=== PATIENT | female | born 1950 | race Caucasian/White ===

== ENCOUNTER 2023-11-26 12:14 | Observation (INO) | payer OTHER ==
[2023-11-26 12:29] VITALS: BMI 27.6
[2023-11-26] MEDS ORDERED: MECLIZINE HCL 25 MG TABLET (FP) ONE (13:52)
[2023-11-26] MEDS ORDERED: METOCLOPRAMIDE HCL INJECTION 10 MG/2 ML VIAL ONE (13:52)
[2023-11-26] MEDS: METOCLOPRAMIDE HCL INJECTION 10 MG/2 ML VIAL IVPB ONE (13:58)
[2023-11-26] MEDS: SODIUM CHLORIDE 0.9% 500 ML INFUS.BAG IV ONE (13:58)
[2023-11-26] MEDS: MECLIZINE HCL 25 MG TABLET (FP) PO ONE (13:58)
[2023-11-26 14:14] LABS: BASO % 0.6 % (0-2.0); EOS % 1.7 % (0-4.5); HEMATOCRIT 38.7 % (32.4-45.2); HEMOGLOBIN 12.8 GM/dL (10.7-15.3); LYMPH % 16.2 % (8-40); MCH 28.7 pg (25.7-33.7); MEAN CELL VOLUME 86.9 fl (80-96); MEAN PLT VOLUME 7.5 fl (7.5-11.1); MONO % 5.1 % (3.8-10.2); NEUT % 76.4 % (42.8-82.8); PLATELET COUNT 263 10^3/uL (134-434); RBC 4.46 M/mm3 (3.60-5.2); WHITE BLOOD COUNT 7.3 K/mm3 (4.0-10.0)
[2023-11-26 14:36] LABS: POTASSIUM 4.5 mmol/L (3.5-5.1)
[2023-11-26 14:37] LABS: CALCIUM 9.2 mg/dL (8.5-10.1)
[2023-11-26 14:38] LABS: ALBUMIN 3.7 g/dl (3.4-5.0); BLOOD UREA NITROGEN 16.2 mg/dL (7-18); MAGNESIUM 2.5 mg/dL (1.8-2.4)
[2023-11-26 14:41] LABS: CREATININE 0.6 mg/dL (0.55-1.3); PHOSPHOROUS 3.9 mg/dL (2.5-4.9)
[2023-11-26 14:42] LABS: TOT PROT 7.2 g/dl (6.4-8.2)
[2023-11-26 14:43] LABS: BILIRUBIN,TOTAL 0.3 mg/dL (0.2-1)
[2023-11-26 15:55] LABS: URINE APPEARANCE CLEAR; URINE BILIRUBIN NEGATIVE (NEGATIVE); URINE COLOR YELLOW; URINE GLUCOSE (UA) NEGATIVE (NEGATIVE); URINE KETONE NEGATIVE (NEGATIVE); URINE LEUK ESTERASE NEGATIVE (NEGATIVE); URINE NITRITE NEGATIVE (NEGATIVE); URINE PROTEIN NEGATIVE (NEGATIVE); URINE UROBILINOGEN 0.2 mg/dL (0.2-1.0)
[2023-11-26] MEDS ORDERED: ACETAMINOPHEN INJECTION 100 ML IVPB ONE (16:09)
[2023-11-26] MEDS: ACETAMINOPHEN 1000 MG/100 ML BAG IVPB ONE (16:14)
[2023-11-26] MEDS ORDERED: METOPROLOL TARTRATE 25 MG TABLET (FP) ONE (21:05)
[2023-11-26] MEDS ORDERED: ATORVASTATIN CA 20 MG TABLET (FP) ONE (21:05)
[2023-11-26] MEDS ORDERED: HEPARIN NA (PORCINE) 5,000 UNITS/ML 1ML VIAL ONE (21:06)
[2023-11-26] MEDS ORDERED: metFORMIN HCL 500 MG TABLET (FP) ONE (21:06)
[2023-11-26] MEDS ORDERED: amLODIPine BESYLATE 5 MG TABLET (FP) ONE (21:15)
[2023-11-26] MEDS: ATORVASTATIN CA 20 MG TABLET (FP) PO SCH (21:16)
[2023-11-26] MEDS: HEPARIN NA (PORCINE) 5,000 UNITS/ML 1ML VIAL SQ SCH (21:16)
[2023-11-26] MEDS: METOPROLOL TARTRATE 25 MG TABLET (FP) PO SCH (21:16)
[2023-11-26] MEDS: metFORMIN HCL 500 MG TABLET (FP) PO SCH (21:16)
[2023-11-27] MEDS: INSULIN ASPART SLIDING SCALE (NOVOLOG) 1 VIAL SQ SCH (07:06)
[2023-11-27 07:53] LABS: BASO % 0.8 % (0-2.0); EOS % 2.7 % (0-4.5); HEMATOCRIT 36.7 % (32.4-45.2); HEMOGLOBIN 11.9 GM/dL (10.7-15.3); LYMPH % 34.3 % (8-40); MCH 28.2 pg (25.7-33.7); MCHC 32.4 g/dl (32.0-36.0); MEAN CELL VOLUME 87.1 fl (80-96); MEAN PLT VOLUME 7.3 fl (7.5-11.1); MONO % 8.4 % (3.8-10.2); NEUT % 53.8 % (42.8-82.8); PLATELET COUNT 252 10^3/uL (134-434); RBC 4.21 M/mm3 (3.60-5.2); RDW 13.7 % (11.6-15.6); WHITE BLOOD COUNT 4.6 K/mm3 (4.0-10.0)
[2023-11-27 08:12] LABS: POTASSIUM 3.8 mmol/L (3.5-5.1)
[2023-11-27 08:14] LABS: BLOOD UREA NITROGEN 14.4 mg/dL (7-18); CALCIUM 8.2 mg/dL (8.5-10.1)
[2023-11-27 08:17] LABS: CREATININE 0.7 mg/dL (0.55-1.3)
[2023-11-27] MEDS: METOPROLOL TARTRATE 25 MG TABLET (FP) PO SCH (09:14)
[2023-11-27] MEDS: amLODIPine BESYLATE 5 MG TABLET (FP) PO SCH (09:14)
[2023-11-27] MEDS: metFORMIN HCL 500 MG TABLET (FP) PO SCH (17:24)
[2023-11-28] MEDS: METOPROLOL TARTRATE 25 MG TABLET (FP) PO SCH (13:01)
[2023-11-29] MEDS: IBUPROFEN 400 MG TABLET (FP) PO ONE (12:01)
[2023-11-29] MEDS: MECLIZINE HCL 25 MG TABLET (FP) PO PRN (14:15)
[2023-11-29 14:25] VITALS: BP 125/74; PULSE 75; RESP 20; TEMP 98.1
== END 2023-11-29 18:00 | disposition home or self-care (01) ==
LOC: JER 12:14 → JERBED 16:26 → J7W 23:00
PROVIDERS: ADMIT Internal Medicine; ATTEND Internal Medicine
PROC: 3E033NZ Introduction of Analgesics, Hypnotics, Sedatives into Peripheral Vein, Percutaneous Approach (ICD-10-PCS; principal; 2023-11-26)
PROC: 3E023GC Introduction of Other Therapeutic Substance into Muscle, Percutaneous Approach (ICD-10-PCS; 2023-11-26)
PROC: 3E033GC Introduction of Other Therapeutic Substance into Peripheral Vein, Percutaneous Approach (ICD-10-PCS; 2023-11-26)
PROC: 3E0337Z Introduction of Electrolytic and Water Balance Substance into Peripheral Vein, Percutaneous Approach (ICD-10-PCS; 2023-11-26)
DX: R42 Dizziness and giddiness (principal); E11.9 Type 2 diabetes mellitus without complications; I10 Essential (primary) hypertension; G43.909 Migraine, unspecified, not intractable, without status migrainosus; E78.5 Hyperlipidemia, unspecified
CPT/HCPCS: 0241U-QW; 36415; 70450-TC; 70551-TC; 71045-TC-FY; 80048; 80053; 81003; 82962; 83735; 84100; 84484; 85025; 87086; 93005; 93010; 96372; 96374; 96375; 97116-GP; 97162-GP; 99285-25; G0378; J0131; J1644